=== PATIENT | female | born 1985 | race Caucasian/White ===

== ENCOUNTER 2017-08-01 05:20 | Day surgery (SDC) | payer SELFPAY ==
[2017-07-24 15:50] LABS: Hematocrit 42.1 % (37-47); Hemoglobin 13.9 g/dl (12.0-15.0); Mean Corpuscular Hgb 29.7 pg (27.0-32.0); Mean Platelet Vol. 12.5 fl (6.2-12.0); Platelet Count 303 K/mm3 (150-450); RBC Distribution Width CV 12.5 % (11.6-14.6); RBC Distribution Width SD 41.1 fl (35.1-43.9); Red Blood Count 4.68 M/mm3 (4.2-5.4); Scan Indicated on CBC? Y/N NO; White Blood Count 8.2 K/mm3 (4.4-11.0)
[2017-08-01] VITALS (14 sets, daily range): BP systolic 98–131; BP diastolic 63–89; PULSE 64–107; RESP 16–18; TEMP 36.4–37.1; O2SAT 89–100; BMI 31.5
[2017-08-01 05:49] LABS: Internal QC Validated? YES +Cl - CLEAR BKGD; Pregnancy, Urine Negative Negative
[2017-08-01] MEDS: Phenazopyridine 95 MG Tablet 190 MG PO (06:03)
--- NOTE | 2017-08-01 07:15 | HYST_PTH ---
PATIENT: SEBASTIAN TANNER LOC: [facility] [place] U#:[id number] AGE/SX: 32/F ROOM: RE08/01/[address]: Dr. Rosetta Blanton, MDDOB: 1985 BED: DIS: 08/02/2017 SPEC #: [id number] RECD: 08/01/17 10:23 STATUS: LISA LISSETT #: [id number] JODI: 08/01/17 07:[address]: Rosetta Blanton DEPT: SURGICAL PATHOLOGY RECD BY: Camilo Gan ENTERED: 08/01/17 12:10 SP TYPE: HYSTERECT OTHR DR: No Primary Care Phys Tissues: Uterus, NOS Procedures: Surgery Specimen Level V HEADER OPERATION: Hysterectomy, laparoscopic, total, salpingectomy, cysto PRE-OP DIAGNOSIS: Pelvic pain TISSUE SUBMITTED: Uterus and bilateral fallopian tubes MICROSCOPIC DIAGNOSIS Uterus and bilateral fallopian tubes, total hysterectomy and bilateral salpingectomy: Cervix ? mild chronic cystic cervicitis. Endometrium ? early secretory endometrium. Myometrium ? a small leiomyoma (0.4 cm in greatest dimension). Bilateral fallopian tubes - no pathologic diagnosis. SJ:julito 08/02/17 MICROSCOPIC DESCRIPTION Slides are reviewed. GROSS DESCRIPTION Received in fixative is one container labeled with the patient's name and designated uterus and bilateral fallopian tubes. The specimen consists of a hysterectomy specimen consisting of uterus with cervix and detached bilateral fallopian tubes. The uterus with cervix weighs 122 gm and measures 10 x 8 x 5 cm. The serosal surface is winter, glistening. The ectocervical mucosa is unremarkable. The external os is circular in contour. A few sutures are noted at the ectocervix. Two Filshie clips are noted at the right cornu which appears intact. The endocervical canal measures 4 cm in length and the endocervical mucosa is winter, glistening and unremarkable. The triangular endometrial cavity measures 4.5 cm in length and 2 cm in width. The endometrium is congested and hemorrhagic without any mass lesion and measures 0.1 cm in thickness. Sections of the uterine wall reveal one small nodular mass measuring 0.4 cm in greatest dimension. The uterine wall measures up to 2.5 cm in thickness. The fallopian tubes are not identified as right or left. One of the fallopian tubes measures 6 cm in length and 0.9 cm in diameter. The fimbrial end is identified. Sections reveal unremarkable cut surfaces. The second fallopian tube is present in two pieces and measures 8 cm in length and 0.9 cm in diameter. The fimbrial end is identified. Sections reveal unremarkable cut surfaces. Housetrailer Servicer sections are submitted in eight cassettes as follows: 1 - anterior cervix, 2 - posterior cervix, 3 & 4 - anterior uterine wall, 5 & 6 - posterior uterine wall (6 also contains the small nodular mass), 7 ? one fallopian tube, 8 ? second fallopian tube received in two pieces. / RADHA:julito 08/01/17 TC:1 CPT: 71035
[2017-08-01] MEDS: Bupivacaine Mpf 0.5% 30 ML VIAL (07:40)
--- NOTE | 2017-08-01 09:33 | PCM.OP.BLANK ---
Operative Report Date of Procedure: 08/01/17 Pre-Operative Diagnosis: Pelvic pain , suspect adenomyosis Post-Operative Diagnosis: same, Surgery/Procedure Performed:: TLH, Bilateral salpingectomy, Cysto Description of Surgical Findings: Uterus normal, tubes s/p previous tubal ligation with filshie clips. Left fishie clips not attached to tube, sitting near anterior culdesac - removed. Bilateral ovaries normal. 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 Norma Garcia anesthesiologists' assistant: Enriqueta Dumont MS3 Type of Anesthesia:: General Special Medications: 1% Lidocaine Specimen's removed: uterus, cervix, bilateral tubes Drains: tse - total output 720 Estimated Blood Loss (mL): 200cc Fluids replaced: 1600cc LR Description of Procedure: Patient take to OR and prepped and draped in usual sterile fashion in dorsal lithotomy position with her arms tucked in a neurologically safe and neutral position. The uterus sounded to 7.5 cm. The Vcare uterine manipulator was sutured into place at 3/9:00 position and tse were placed. Attention was turned to the abdomen. All port sites were infiltrated with 1% lidocaine before the incisions were made. The anterior abdominal wall was tented up with towel clamps and using a direct entry approach a 5 mm intraumbilical port was placed. Intraperitoneal placement was confirmed with the laparoscope and the pneumoperitoneum was created. The patient was placed in Trendelenburg and 5 mm right and left lower quadrant ports were placed under direct visualization. Air seal rapid insufflator was used. The bowel was swept away. Ovaries appeared normal. The mesosalpinx starting at fimbriated end were grasped, clamped, sealed and transected with the Ligasure. The round ligaments were divided. significant adhesions from bladder to anterior aspect of uterus- taken down diligently to ensure no cystotomy. The anterior peritoneum was dissected down to create the bladder flap with blunt dissection and the LigaSure. The uterine arteries were isolated, clamped, sealed and cut. There was minimal back bleeding from the uterus. Straight bites on uterine artieries performed to drop them off the cuff. The Vcare was used as guide to create colpotomy using monopolar tip of ligasure. once specimen was removed attention was turned to vaginal portion. there were small vessels on the cuff that were coagulated. attention turned to vaginal portion at this time- The specimen was handed off. more small oozing noted from cuff- posterior peritoneum was run with 2-0 vicryl and any oozing was sutured in figure of eight fashion for hemostasis. The cuff was closed with interrupted 0-vicryl figure of 8 sutures. Cystoscopy was performed bilateral ureters were visualized with good efflux. bladder was intact. tse replaced and sponge stick placed in vagina. The pneumoperitoneum was recreated and the cuff and pedicles were hemostatic. Regino was placed over cuff and pedicles. The skin incisions were closed with skin glue and 3-0 monocryl in the LLQ port site. The vaginal sweep was completed by me. i anticipate a normal post op course for this patient. Grafts/Implants Used: none
[2017-08-01] MEDS: Ketorolac 30 MG/ML Syringe IV ×3 (10:14→21:29)
[2017-08-01] MEDS: Lactated Ringers 1,000 ML 125 ML IV ×3 (10:18→21:29)
--- NOTE | 2017-08-01 10:35 | PCM.DC.AHY ---
Discharge Diet: No Restrictions Discharge Activity: Return to Normal Activity, May Not Drive - while taking narcotic pain medications., May Shower May resume sexual activity in: 6-8 weeks Lifting Restrictions: 20 Call your doctor if your incision/area has: Continuous Slow Oozing, Sudden Increased Bleeding, Increased Pain/ Swelling, Increased Redness, Foul Smelling Discharge Call your doctor if you observe: Fever of 101 or Higher, Inability to urinate, Inability to have a bowel movement, Using more than one pad per hour Allergies/Adverse Reactions: Allergies No Known Allergies Allergy (Verified 07/24/17 14:28) Medications to take at Discharge Multivitamins,Therapeutic [Multivitamin] 1 tablet PO DAILY 08/01/15 L.acidoph,Paracasei, B.lactis [Probiotic] 1 each PO DAILY 07/24/17 Primary Care Physician: Care Physician,No Primary [Primary Care Provider] - Please Follow Up With: Rosetta Blanton MD When: 2 weeks as scheduled with Dr. Cheung
[2017-08-01] MEDS: Acetaminophen 500 MG Tablet 1000 MG PO ×2 (14:20→21:28)
[2017-08-01] MEDS: HYDROmorphone 1 MG/ML Syringe IV (17:28)
[2017-08-01 17:47] LABS: Hematocrit 35.9 % (37-47); Hemoglobin 11.8 g/dl (12.0-15.0); Mean Corp Hgb Conc 32.9 g/gl (32-36); Mean Corpuscular Hgb 29.9 pg (27.0-32.0); Mean Corpuscular Volume 90.9 fL (81-99); Platelet Count 217 K/mm3 (150-450); RBC Distribution Width CV 12.3 % (11.6-14.6); RBC Distribution Width SD 40.6 fl (35.1-43.9); Red Blood Count 3.95 M/mm3 (4.2-5.4); White Blood Count 13.3 K/mm3 (4.4-11.0)
[2017-08-01 17:49] LABS: Scan Indicated on CBC? Y/N NO
[2017-08-01] MEDS: oxyCODONE 5 MG Tablet PO (20:25)
[2017-08-01] MEDS: Docusate Sodium 100 MG Capsule PO (21:28)
[2017-08-02] MEDS: oxyCODONE 5 MG Tablet PO (01:24)
[2017-08-02 01:31] VITALS: BP 100/66; PULSE 83; RESP 18; TEMP 36.9; O2SAT 95
[2017-08-02] MEDS: Ketorolac 30 MG/ML Syringe IV (05:13)
[2017-08-02] MEDS: Enoxaparin 40 MG/0.4 ML Syringe SC (05:14)
[2017-08-02] MEDS: 0.9% NaCl Peripheral Flush Adult/Peds IV (05:15)
[2017-08-02] MEDS: Acetaminophen 500 MG Tablet 1000 MG PO (05:15)
[2017-08-02 06:21] LABS: Absolute Lymphocyte Count 2.65 X10^3/ul (0.83-4.51); Absolute Neutrophil Count 6.6 X10^3/uL (2.0-7.7); Basophil# 0.01 X10^3/uL; Basophil% 0.1 % (0-1); Eosinophil# 0.15 X10^3/uL; Eosinophils% 1.4 % (0-5); Hematocrit 34.3 % (37-47); Lymphocyte # 2.65 X10^3/ul (4.0); Lymphocyte % 24.4 % (19-41); Mean Corp Hgb Conc 32.1 g/gl (32-36); Mean Corpuscular Volume 90.5 fL (81-99); Mean Platelet Vol. 11.4 fl (6.2-12.0); Monocyte# 1.47 X10^3/uL; Monocyte% 13.5 % (0-10); Neutrophil # 6.56 X10^3/uL (2.7-7.7); Neutrophil % 60.4 % (47-70); Platelet Count 224 K/mm3 (150-450); RBC Distribution Width CV 12.7 % (11.6-14.6); RBC Distribution Width SD 42.1 fl (35.1-43.9); Red Blood Count 3.79 M/mm3 (4.2-5.4); White Blood Count 10.9 K/mm3 (4.4-11.0)
[2017-08-02 06:33] LABS: POSITIVE COUNT NO; POSITIVE DIFFERENTIAL NO; POSITIVE MORPHOLOGY NO
[2017-08-02 07:29] VITALS: BP 98/64; PULSE 90; RESP 18; TEMP 36.7; O2SAT 96
[2017-08-02 07:36] VITALS: O2SAT 95
--- NOTE | 2017-08-02 08:07 | PN.OBGYN_ITS ---
Subjective: pt seen at bedside, doing well. pt reports good pain control- rates 3/10. denies Nausea or vomiting today- had one episode of emesis last night. pt reports no flatus yet. Denies CP, SOB, dizziness. Up ambulating and voiding w/o difficulty. - Physical Exam General: Alert, Oriented x3 Abdomen: Soft, Non-Distended, - - incision sites dry and intact Extremities: No Calf Tenderness Vital Signs Temp Pulse Resp BP Pulse Ox 98.1 F 90 18 98/64 95 08/02/17 07:29 08/02/17 07:29 08/02/17 07:29 08/02/17 07:29 08/02/17 07:36 Oxygen Flow Rate (L/min) 2 Oxygen Delivery Method Room Air Weight: 78.2 kg Body Mass Index (BMI) 31.5 Intake and Output for Last 24 Hours 07/31/17 08/01/17 08/02/17 23:59 23:59 23:59 Intake Total 3907 / 3907 1066 / 1066 Output Total 2170 / 2170 2575 / 2575 Balance 1737 / 1737 -1509 / -1509 Laboratory Tests Past 24 Hrs 08/01/17 08/02/17 17:20 06:06 WBC 13.3 H 10.9 RBC 3.95 L 3.79 L Hgb 11.8 L 11.0 L Hct 35.9 L 34.3 L MCV 90.9 90.5 MCH 29.9 29.0 MCHC 32.9 32.1 RDW 12.3 12.7 RDW Differential 40.6 42.1 Plt Count 217 224 MPV 12.0 11.4 Immature Gran % (Auto) 0.200 Neut % (Auto) 60.4 Lymph % (Auto) 24.4 [place] % (Auto) 13.5 H Eos % (Auto) 1.4 Baso % (Auto) 0.1 Absolute Neuts (auto) 6.6 Absolute Lymphs (auto) 2.65 Total Counted Not Reportable Medical Necessity - Tobacco Use Smoking Status: Never smoker Assessment/Plan POD#1, doing well routine care pain mgmt ambulation dc home- post op pain meds already given prior to surgery
[2017-08-02] MEDS: Docusate Sodium 100 MG Capsule PO (08:40)
== END 2017-08-02 09:36 | disposition home or self-care (01) ==
LOC: SDC 05:25 → AC 05:25 → MS2 08:20
PROVIDERS: Anesthesiology; Visit Provider Obstetrics & Gynecology
PROC: 0UT94ZZ Resection of Uterus, Percutaneous Endoscopic Approach (ICD-10-PCS; CPT 58571; principal; 2017-08-01 06:55)
DX: N72 Inflammatory disease of cervix uteri (principal); D25.9 Leiomyoma of uterus, unspecified; G89.18 Other acute postprocedural pain; Z98.51 Tubal ligation status
CPT/HCPCS: 00840; 58571; 36415; 81025; 85025; 85027; 86850; 86900; 88307; J7120; A4216; J2405

== ENCOUNTER 2018-10-05 21:26 | Emergency (ER) | payer OTHER, SELFPAY ==
[2018-10-05 21:27] VITALS: BP 120/71; PULSE 110; RESP 18; TEMP 36.7; O2SAT 97; BMI 31.6
--- NOTE | 2018-10-05 22:48 | CT_ITS ---
STUDY: CT ABDOMEN AND PELVIS WITHOUT CONTRAST REASON FOR EXAM: Female, 33 years old. Left flank pain RADIATION DOSAGE (If Supplied By Facility): CTDIvol = ( 8.76 ) mGy, DLP = ( 433.15 ) mGycm TECHNIQUE: Transaxial images were obtained from the dome of the diaphragm to the symphysis pubis without oral contrast, and without intravenous contrast. Sagittal and coronal images were reconstructed. Individualized dose optimization techniques were used for this CT. COMPARISON: None. FINDINGS: The visualized lung bases are unremarkable. The visualized portions of the heart are within normal limits. Normal liver. Normal gallbladder and extrahepatic biliary system. Normal spleen. Normal pancreas. Normal bilateral adrenal glands. Normal right kidney. Normal left kidney. Normal visualized stomach. Normal small intestine. Normal colon. There is non-visualization of the appendix. Normal abdominal aorta. Normal inferior vena cava. Normal retroperitoneum. Normal urinary bladder. Normal-appearing uterus. No suspicious cystic mass or free fluid noted Normal abdominal wall. Normal osseous structures. CT/Abdomen/Pelvis without Cont IMPRESSION: No suspicious solid organ abnormality, specifically, no obstructive uropathy noted. Appendix not visualized No suspicious cystic mass or free fluid in the pelvis No free intraperitoneal fluid, air, or suspicious adenopathy Electronically Signed: Khang Greene MD at 23:38 EDT , Service support ,
[2018-10-05] MEDS: Morphine 4 MG/ML Syringe IV (22:59)
[2018-10-05] MEDS: Ondansetron 4 MG/2 ML Vial IV (22:59)
[2018-10-05] MEDS: Ketorolac 30 MG/ML Syringe IV (23:00)
[2018-10-05] MEDS: 0.9% Normal Saline 1,000 ML 999 ML IV (23:00)
[2018-10-05 23:09] LABS: Absolute Lymphocyte Count 1.84 X10^3/ul (0.83-4.51); Absolute Neutrophil Count 12.9 X10^3/uL (2.0-7.7); Basophil# 0.02 X10^3/uL; Basophil% 0.1 % (0-1); Eosinophil# 0.17 X10^3/uL; Hematocrit 43.2 % (37-47); Hemoglobin 14.6 g/dl (12.0-15.0); Lymphocyte # 1.84 X10^3/ul (4.0); Mean Corp Hgb Conc 33.8 g/gl (32-36); Mean Corpuscular Volume 88.7 fL (81-99); Monocyte# 1.72 X10^3/uL; Monocyte% 10.3 % (0-10); Neutrophil # 12.92 X10^3/uL (2.7-7.7); Neutrophil % 77.3 % (47-70); Platelet Count 192 K/mm3 (150-450); RBC Distribution Width CV 12.6 % (11.6-14.6); RBC Distribution Width SD 40.3 fl (35.1-43.9); Red Blood Count 4.87 M/mm3 (4.2-5.4); White Blood Count 16.7 K/mm3 (4.4-11.0)
[2018-10-05 23:10] LABS: Differential Indicated SCAN CRITERIA MET; POSITIVE COUNT NO; POSITIVE DIFFERENTIAL YES; POSITIVE MORPHOLOGY NO
[2018-10-05 23:26] LABS: Bacteria 0 SEEN /hpf (None Seen); Mucous, Urine 0 SEEN /hpf (<or=2+)
[2018-10-05 23:29] LABS: Color, Urine Yellow (Yellow); Differential Comment SCANNED; Glucose, Dipstick Normal (Normal); Ketone-Dipstick 5 mg/dl (Negative); Leukocyte Esterase-Dipstick 500 /ul (Negative); Nitrite-Dipstick Positive (Negative); Occult Blood-Urine 250 /ul (Negative); Protein-Dipstick 100 mg/dl (Negative); Urine Bilirubin Dipstick Negative (Negative); Urine Clarity Cloudy (Clear); Urine Urobilinogen Normal (Normal)
[2018-10-05 23:38] LABS: Red Blood Cells-Urine 25-50 SEEN /hpf (0-5); Squamous Epithelial Cells - UA 0-5 SEEN /hpf (5-10); White Blood Cells >100 SEEN /hpf (0-5)
[2018-10-05 23:49] VITALS: BP 111/75; PULSE 97; RESP 16; TEMP 36.7; O2SAT 94
[2018-10-05 23:54] LABS: Anion Gap 8 (5-15); BUN 7 mg/dL (7-18); BUN/Creat Ratio 8.7 RATIO (10-20); Calcium,Total 8.1 mg/dL (8.5-10.1); Chloride 107 mmol/L (98-107); EST Glomerular Filtration Rate 86 mL/min (>60); Est Glom Filt Rate - Afr Amer 104 mL/min (>60); Estimated Creatinine Clearance 77.63 ml/min; Glucose 127 mg/dL (74-106); Potassium 3.6 mmol/L (3.5-5.1); Sodium Level 140 mmol/L (136-145)
[2018-10-06] MEDS: Ceftriaxone 1 GM/50 ML BAG IV (00:14)
--- NOTE | 2018-10-06 00:42 | ED.VIS.GI ---
History of Present Illness Chief Complaint: Abd Pain Informant: Patient - Abdominal Pain/Flank Pain Onset: Yesterday Context: Gradual Onset Timing: Continuous Quality: Aching Location: Left Flank - and distal LLQ Current Severity: Severe Maximum Severity: Severe Worsened by: Nothing Relieved by: Nothing - Nausea/Vomiting/Emesis GI Symptom: Nausea, Vomiting Onset: Yesterday Quality: Nonbilious. Negative for: Blood streaks, Coffee ground, Hematemesis Severity: Moderate - only few episodes of vtg - Diarrhea/Melena/Hematochezia GI Symptom: Negative for: Diarrhea, Melena, Hematochezia Associated Symptoms: Dysuria, Frequency, Hematuria - very slight amt/appearance; no clots/retention LMP: s/p partial hyst Narrative: Urinary symptoms started yesterday, but significant pain since this morning. Never had this before. No history of kidney stones. Prior similar symptoms: No Recent Illness/Hospitalization: No Past Medical History - Allergies and Home Meds Allergies/Adverse Reactions: Allergies No Known Allergies Allergy (Verified 10/05/18 21:27) Primary Care Physician: Care Physician,No Primary [Primary Care Provider] - Surgical History: hysterectomy, - - c-sections Lives: With Family Smoking Status: Never smoker Review of Systems General: Reports: Malaise. Denies: Chills, Fever, Sweats Eyes: Denies: Visual changes - bilaterally, Diplopia ENT: Denies: Rhinorrhea, Sore throat Cardiovascular: Denies: Chest pain, Palpitations Respiratory: Denies: Dyspnea, Cough, Dyspnea on exertion Gastrointestinal: Reports: Abdominal pain, Nausea, Vomiting. Denies: Diarrhea, Melena, Hematochezia Genitourinary: Reports: Dysuria, Hematuria, Frequency Musculoskeletal: Reports: Back pain. Denies: Neck pain, Swelling, Extremity Pain Skin: Denies: Rash, Abscess, Wounds Neurological: Denies: Headache, Weakness, Numbness Physical Exam Vital Signs/Narrative: Vital Signs Temp Pulse Resp BP Pulse Ox 10/05/18 23:49 98.0 F 97 16 111/75 94 10/05/18 21:27 98.0 F 110 H 18 120/71 97 Inital Vital Signs reviewed: Yes General: Well nourished, Well developed, No Acute Distress Head: Normocephalic, Atraumatic Eyes: Perrl, EOMI ENT: Moist mucous membranes, No rhinorrhea Neck: Supple, Nontender Cardiovascular: Regular rate, Regular rhythm, No murmurs Respiratory: No distress, CTA bilaterally, Chest nontender Abdomen: Soft, Nondistended, Normal bowel sounds, Tender - suprapubic and LLQ mild; otherwise, NT. Negative for: Guarding, Rebound tenderness, Pulsatile mass Back: Normal Inspection - no rash, CVA tenderness - left Extremities: Nontender, No edema Skin: Normal color, No rash Neurological: Alert, Oriented x3, Cranial nerves II-XII grossly intact, Normal Strength, Normal Sensation Psychological: Normal affect, Normal Mood Diagnostic/Tx/Re-eval Impressions Abdomen/Pelvis CT 10/05/18 22:48 IMPRESSION: No suspicious solid organ abnormality, specifically, no obstructive uropathy noted. Appendix not visualized No suspicious cystic mass or free fluid in the pelvis No free intraperitoneal fluid, air, or suspicious adenopathy Electronically Signed: Khang Greene MD at 23:38 EDT , Service support , 10/05/18 22:48 Abdomen/Pelvis without Cont [CT] Stat Laboratory Results 10/05/18 10/05/18 10/05/18 21:45 21:45 21:45 WBC 16.7 H RBC 4.87 Hgb 14.6 Hct 43.2 MCV 88.7 MCH 30.0 MCHC 33.8 RDW 12.6 RDW Differential 40.3 Plt Count 192 MPV 13.0 H Immature Gran % (Auto) 0.300 Neut % (Auto) 77.3 H Lymph % (Auto) 11.0 L [place] % (Auto) 10.3 H Eos % (Auto) 1.0 Baso % (Auto) 0.1 Absolute Neuts (auto) 12.9 H Absolute Lymphs (auto) 1.84 Total Counted Not Reportable Differential Comment SCANNED Sodium Cancelled Potassium Cancelled Chloride Cancelled Carbon Dioxide Cancelled Anion Gap Cancelled BUN Cancelled Creatinine Cancelled Estim Creat Clear Calc Cancelled Est GFR (MDRD) Af Amer Cancelled Est GFR (MDRD) Non-Af Cancelled BUN/Creatinine Ratio Cancelled Glucose Cancelled Calcium Cancelled Urine Color Yellow Urine Clarity Cloudy Urine pH 6.0 Ur Specific [place] 1.020 Urine Protein 100 H Urine Glucose (UA) Normal Urine Ketones 5 H Urine Occult Blood 250 H Urine Nitrite Positive H Urine Bilirubin Negative Urine Urobilinogen Normal Ur Leukocyte Esterase 500 H Urine RBC 25-50 SEEN Urine WBC >100 SEEN Ur Squamous Epith Cells 0-5 SEEN Urine Bacteria 0 SEEN Urine Mucus 0 SEEN 10/05/18 23:25 WBC RBC Hgb Hct MCV MCH MCHC RDW RDW Differential Plt Count MPV Immature Gran % (Auto) Neut % (Auto) Lymph % (Auto) [place] % (Auto) Eos % (Auto) Baso % (Auto) Absolute Neuts (auto) Absolute Lymphs (auto) Total Counted Differential Comment Sodium 140 Potassium 3.6 Chloride 107 Carbon Dioxide 25.0 Anion Gap 8 BUN 7 Creatinine 0.80 Estim Creat Clear Calc 77.63 Est GFR (MDRD) Af Amer 104 Est GFR (MDRD) Non-Af 86 BUN/Creatinine Ratio 8.7 L Glucose 127 H Calcium 8.1 L Urine Color Urine Clarity Urine pH Ur Specific [place] Urine Protein Urine Glucose (UA) Urine Ketones Urine Occult Blood Urine Nitrite Urine Bilirubin Urine Urobilinogen Ur Leukocyte Esterase Urine RBC Urine WBC Ur Squamous Epith Cells Urine Bacteria Urine Mucus - Medical Decision Making After IV fluids, morphine, Zofran, patient is feeling and appearing much better. CT shows no stone or signs of diverticulitis. Given the urinary symptoms, although radiographic abnormality of the kidney was not seen, this is likely pyelonephritis. She was given a dose of IV Rocephin, given a p.o. fluid challenge which she passed easily, she appears much better and her heart rate is now less than 100. She is clinically well and not septic. She is comfortable with outpatient treatment. She is discharged on Bactrim, [place], Zofran, advised follow-up. Culture was sent. ED Disposition - Plan for ED Patient: Disposition: Home or Assisted Living Diagnosis: Pyelonephritis Instructions: PYELONEPHRITIS, Female (Adult) Prescriptions: Sulfamethoxazole/Trimethoprim [Bactrim Ds Tablet] 1 ea PO BID #28 tab Prescription Printed Hydrocodone Bitart/Apap 5-325 [[place] 5MG-325MG] 1 tab PO Q4H PRN PRN 2 Days #10 tab PRN Reason: Pain Prescription Printed Ondansetron [Zofran] 8 mg PO Q8H PRN #12 tab PRN Reason: Nausea/Vomiting Prescription Printed Referrals: Doctor,Your [STAFF PHYSICIAN] - 3-5 Days if not improving
[2018-10-06] MEDS: Smz/Tmp Ds Tablet 1 TABLET PO (01:04)
[2018-10-06 01:05] VITALS: BP 91/64; PULSE 75; RESP 18; O2SAT 97
== END 2018-10-06 01:05 | disposition home or self-care (01) ==
PROVIDERS: Emergency Provider Emergency Medicine
DX: N12 Tubulo-interstitial nephritis, not specified as acute or chronic (principal)
CPT/HCPCS: 74176; 80048; 81001; 85025; 87086; 87088; 87186; 96361; 96365; 96375; 99285; J7030; J7050; A4216; J2405

== ENCOUNTER → 2018-10-13 12:46 | Outpatient (CLI) | payer OTHER, SELFPAY ==
[2018-10-05 21:27] VITALS: BMI 31.6
== END ==
PROVIDERS: Referring Provider Urology; Visit Provider Urology
DX: R30.0 Dysuria (principal)
CPT/HCPCS: 87086

== ENCOUNTER 2020-04-01 23:18 | Emergency (ER) | payer OTHER, SELFPAY ==
[2020-04-01 23:19] VITALS: BP 134/96; PULSE 87; RESP 18; TEMP 36.7; O2SAT 96; BMI 32.0
--- NOTE | 2020-04-01 23:32 | ED.DCSUM_ITS ---
History of Present Illness Chief Complaint: Abd Pain Informant: Patient Narrative: Patient presents with dull achy pain and burning in the epigastric region. Is been going on since this afternoon. She had it last week for short period of time and it resolved on its own soon after it started. History of hysterectomy and in the past. Positive nausea without vomiting. Normal bowel movements. No urinary symptoms. Current severity is mild to moderate. She tried Tums at home with minimal relief. Past Medical History - Allergies and Home Meds Allergies/Adverse Reactions: Allergies No Known Allergies Allergy (Verified 04/01/20 23:21) Primary Care Physician: Care Physician,No Primary [Primary Care Provider] - Prior records reviewed: Yes Past Medical History: - - Reviewed Surgical History: hysterectomy, - - c-sections Smoking Status: Never smoker Alcohol: None Drugs: None Review of Systems General: Denies: Chills, Fever, Sweats Eyes: Denies: Visual changes - bilaterally, Diplopia ENT: Denies: Rhinorrhea, Sore throat Cardiovascular: Denies: Chest pain, Palpitations Respiratory: Denies: Dyspnea, Cough, Dyspnea on exertion Gastrointestinal: Reports: Abdominal pain, Nausea. Denies: Vomiting, Diarrhea, Melena, Hematochezia Genitourinary: Denies: Dysuria, Hematuria, Frequency Musculoskeletal: Denies: Back pain, Extremity Pain Skin: Denies: Rash, Wounds Neurological: Denies: Headache, Weakness, Numbness Physical Exam Vital Signs/Narrative: Vital Signs Temp Pulse Resp BP Pulse Ox 04/01/20 23:19 98.0 F 87 18 134/96 H 96 General: Well nourished, Well developed, No Acute Distress Head: Normocephalic, Atraumatic Eyes: Perrl, EOMI ENT: Moist mucous membranes, No rhinorrhea Neck: Supple, Nontender Cardiovascular: Regular rate, Regular rhythm, No murmurs Respiratory: No distress, CTA bilaterally, Chest nontender Abdomen: Soft, Nondistended, Normal bowel sounds, Tender - Isauro to palpation epigastric without guarding or rebound. No masses. Negative for: Guarding, Rebound tenderness, Hypoactive bowel sounds Back: Nontender, Normal Inspection Extremities: Nontender, No edema Skin: Normal color, No rash Neurological: Alert, Oriented x3, Cranial nerves II-XII grossly intact, Normal Strength, Normal Sensation Psychological: Normal affect, Normal Mood Diagnostic/Tx/Re-eval - Medical Decision Making Patient given IV fluids Zofran morphine. Lab work obtained. Lab work unremarkable including CBC BMP liver lipase urine. At this time I feel the patient can be discharged. On reevaluation she feels much better. Abdominal pain is completely resolved. This may be gastritis related pain or stomach ulcer. She will sampler pickup Pepcid and wants to do this [id number] and follow-up with her family doctor. I have a low suspicion for gallbladder pain. Her discomfort is in the epigastric region. I do not think she needs acute imaging. We will follow-up as an outpatient and return if she worsens ED Disposition - Plan for ED Patient: Disposition: Home or Assisted Living Diagnosis: Epigastric abdominal pain Instructions: ED Epigastric Pain (Uncertain Cause) Referrals: Care Physician,No Primary [Primary Care Provider] - Additional Instructions: Follow with your family doctor. Use Pepcid [id number] antiacid medication
[2020-04-02 00:03] LABS: Absolute Lymphocyte Count 2.98 X10^3/uL (0.83-4.51); Absolute Neutrophil Count 5.3 X10^3/uL (2.0-7.7); Basophil# 0.05 X10^3/uL; Basophil% 0.5 % (0-1); Eosinophil# 0.32 X10^3/uL; Eosinophils% 3.3 % (0-5); Hematocrit 42.5 % (37-47); Lymphocyte # 2.98 X10^3/ul (4.0); Mean Corp Hgb Conc 32.9 g/dL (32-36); Mean Corpuscular Hgb 29.2 pg (27.0-32.0); Mean Corpuscular Volume 88.5 fL (81-99); Mean Platelet Vol. 11.5 fl (6.2-12.0); Monocyte# 0.99 X10^3/uL; Monocyte% 10.3 % (0-10); NRBC Flagged by Analyzer 0 % (0-5); Neutrophil # 5.25 X10^3/uL (2.7-7.7); Neutrophil % 54.6 % (47-70); POSITIVE MORPHOLOGY YES; Platelet Count 200 K/mm3 (150-450); RBC Distribution Width CV 12.1 % (11.6-14.6); RBC Distribution Width SD 39.2 fl (35.1-43.9); White Blood Count 9.6 K/mm3 (4.4-11.0)
[2020-04-02] MEDS: Morphine 4 MG/ML Syringe IV (00:03)
[2020-04-02] MEDS: 0.9% Normal Saline 1,000 ML 1000 ML IV (00:03)
[2020-04-02] MEDS: Ondansetron 4 MG/2 ML Vial IV (00:04)
[2020-04-02 00:06] LABS: Differential Indicated SCAN CRITERIA MET
[2020-04-02 00:17] LABS: AST(SGOT) 15 U/L (15-37); Alanine Aminotransfer ALT/SGPT 27 U/L (13-56); Albumin, Serum 4.3 g/dL (3.2-5.0); Alkaline Phosphatase 65 U/L (45-117); Anion Gap 7 (5-15); BUN 7 mg/dL (7-18); BUN/Creat Ratio 8.4 RATIO (10-20); Bilirubin, Direct 0.22 mg/dL (0.00-0.30); Calcium,Total 9.2 mg/dL (8.5-10.1); Chloride 106 mmol/L (98-107); Creatinine, Serum 0.83 mg/dL (0.55-1.02); EST Glomerular Filtration Rate 82 mL/min (>60); Est Glom Filt Rate - Afr Amer 99 mL/min (>60); Globulin 3.6 g/dL (2.2-4.2); Glucose 107 mg/dL (74-106); Lipase 76 U/L (73-393); Potassium 3.5 mmol/L (3.5-5.1); Protein, Total 7.9 g/dL (6.4-8.2); Sodium Level 140 mmol/L (136-145)
[2020-04-02 00:25] LABS: Bacteria 0 SEEN /hpf (None Seen); Mucous, Urine 0 SEEN /hpf (<or=2+); Red Blood Cells-Urine 0 SEEN /hpf (0-5); Squamous Epithelial Cells - UA 0 SEEN /hpf (5-10); White Blood Cells 0 SEEN /hpf (0-5)
[2020-04-02 00:26] LABS: Color, Urine Straw (Yellow); Glucose, Dipstick Normal (Normal); Ketone-Dipstick Negative (Negative); Leukocyte Esterase-Dipstick Negative /ul (Negative); Nitrite-Dipstick Negative (Negative); Occult Blood-Urine Negative /ul (Negative); Protein-Dipstick Negative (Negative); Urine Bilirubin Dipstick Negative (Negative); Urine Clarity Clear (Clear); Urine Urobilinogen Normal (Normal)
[2020-04-02 00:38] LABS: Differential Comment SCANNED
[2020-04-02 00:39] LABS: Platelet Estimate ADEQUATE (ADEQ)
[2020-04-02 00:40] LABS: Platelet Morphology CLUMPED
[2020-04-02 01:40] VITALS: BP 132/60; PULSE 78; RESP 18; O2SAT 96
== END 2020-04-02 01:41 | disposition home or self-care (01) ==
PROVIDERS: Emergency Provider Emergency Medicine
DX: R10.13 Epigastric pain (principal); R11.0 Nausea; Z90.710 Acquired absence of both cervix and uterus
CPT/HCPCS: 80048; 80076; 81001; 83690; 85025; 96361; 96374; 96375; 99283; J7030; A4216; J2405

== ENCOUNTER 2020-09-26 14:05 | Emergency (ER) | payer OTHER, SELFPAY ==
[2020-09-26 14:06] VITALS: BP 115/73; PULSE 124; RESP 16; TEMP 37.1; O2SAT 96; BMI 31.1
--- NOTE | 2020-09-26 15:23 | EKG12_ITS ---
Test Reason : Blood Pressure : / mmHG Vent. Rate : 107 BPM Atrial Rate : 107 BPM P-R Int : 136 ms QRS Dur : 088 ms QT Int : 350 ms P-R-T Axes : 053 057 009 degrees QTc Int : 467 ms Sinus tachycardia Otherwise normal ECG Confirmed by ANDRIA MRAROQUIN, BROOKS ([id number]), editor in chief newspaper SANDRA SUAREZ ([id number]) on 09/29/2020 7:50:08 AM Referred By: TYRONE Confirmed By:BROOKS AYERS MD
[2020-09-26 15:49] LABS: Absolute Neutrophil Count 10.2 X10^3/uL (2.0-7.7); Basophil# 0.02 X10^3/uL; Basophil% 0.2 % (0-1); Eosinophil# 0.02 X10^3/uL; Eosinophils% 0.2 % (0-5); Hematocrit 46.1 % (37-47); Hemoglobin 15.1 g/dL (12.0-15.0); Lymphocyte % 5.1 % (19-41); Mean Corp Hgb Conc 32.8 g/dL (32-36); Mean Corpuscular Hgb 29.3 pg (27.0-32.0); Mean Corpuscular Volume 89.5 fL (81-99); Mean Platelet Vol. 12.1 fl (6.2-12.0); Monocyte# 0.88 X10^3/uL; Monocyte% 7.5 % (0-10); NRBC Flagged by Analyzer 0 % (0-5); Neutrophil # 10.19 X10^3/uL (2.7-7.7); Neutrophil % 86.7 % (47-70); POSITIVE DIFFERENTIAL YES; POSITIVE MORPHOLOGY YES; Platelet Count 151 K/mm3 (150-450); RBC Distribution Width SD 39.4 fl (35.1-43.9); Red Blood Count 5.15 M/mm3 (4.2-5.4); White Blood Count 11.8 K/mm3 (4.4-11.0)
[2020-09-26] MEDS: 0.9% Normal Saline 1,000 ML 1000 ML IV (15:53)
[2020-09-26 15:56] VITALS: O2SAT 96
[2020-09-26 16:01] LABS: Differential Indicated SCAN CRITERIA MET
[2020-09-26 16:03] VITALS: BP 113/80; PULSE 105; RESP 19; TEMP 37.1; O2SAT 99
[2020-09-26 16:05] LABS: Bacteria 0 SEEN /hpf (None Seen); Mucous, Urine 0 SEEN /hpf (<or=2+); Red Blood Cells-Urine 0 SEEN /hpf (0-5); White Blood Cells 0 SEEN /hpf (0-5)
--- NOTE | 2020-09-26 16:05 | RAD_ITS ---
INDICATION: tachycardia EXAMINATION/TECHNIQUE: X-RAY - XR Chest 1 View COMPARISON: 01/12/2015. FINDINGS: The lungs are clear. The cardiomediastinal silhouette is unremarkable. No pleural effusion or pneumothorax. No acute osseous abnormalities. RAD/Chest 1 View (Portable) IMPRESSION: No acute radiographic abnormalities. Electronically Signed: Taran Bustillo MD at 16:27 EDT Tel , Service support ,
[2020-09-26 16:10] LABS: Anion Gap 7 (5-15); BUN 7 mg/dL (7-18); BUN/Creat Ratio 8.6 RATIO (10-20); Calcium,Total 8.8 mg/dL (8.5-10.1); Chloride 102 mmol/L (98-107); Creatinine, Serum 0.81 mg/dL (0.55-1.02); EST Glomerular Filtration Rate 84 mL/min (>60); Est Glom Filt Rate - Afr Amer 102 mL/min (>60); Estimated Creatinine Clearance 75.21 ml/min; Glucose 115 mg/dL (74-106); Potassium 3.7 mmol/L (3.5-5.1); Sodium Level 136 mmol/L (136-145); Troponin-I HS < 3.0 pg/mL (3.0-53.7)
[2020-09-26 16:15] LABS: Color, Urine Yellow (Yellow); Glucose, Dipstick Normal (Normal); Ketone-Dipstick Negative (Negative); Leukocyte Esterase-Dipstick Negative /ul (Negative); Nitrite-Dipstick Negative (Negative); Occult Blood-Urine Negative /ul (Negative); Protein-Dipstick Negative (Negative); Urine Bilirubin Dipstick Negative (Negative); Urine Clarity Clear (Clear); Urine Urobilinogen Normal (Normal)
[2020-09-26 16:35] LABS: D-Dimer Quantitative (DVT/PE) 0.59 FEU/ug/m (0.27-0.49)
[2020-09-26 16:37] LABS: Squamous Epithelial Cells - UA 0-5 SEEN /hpf (5-10)
[2020-09-26 16:39] VITALS: BP 110/79; BP 111/79; BP 113/83; PULSE 101; PULSE 105; PULSE 122
[2020-09-26 16:39] LABS: Platelet Estimate ADEQUATE (ADEQ)
[2020-09-26 16:40] LABS: Anisocytosis 1+; Macrocytosis RARE; Red Cell Morphology N CHROM NORMAL (NORM C&C)
--- NOTE | 2020-09-26 16:41 | CT_ITS ---
STUDY: CTA CHEST REASON FOR EXAM: Female, 35 years old. chest pain RADIATION DOSAGE (If Supplied By Facility): CTDIvol = ( 11.44 ) mGy, DLP = ( 343.02 ) mGycm TECHNIQUE: The examination was performed with the intravenous administration of IV 100mL Isovue-370. Post-processing of the angiographic images was performed, with multiplanar reformation and 3D reconstruction. Individualized dose optimization techniques were used for this CT. COMPARISON: CT of the chest dated February 16, 2012 FINDINGS: No consolidation or pleural effusion or pulmonary edema is seen. Normal enhancement of the main pulmonary artery and right and left pulmonary arteries. Normal enhancement of the bilateral peripheral pulmonary arteries. There is no demonstrated pulmonary embolism. Normal thoracic aorta and visualized great vessels. There is no demonstrated aortic dissection. Normal heart and pericardium. Normal mediastinum. Normal hilar regions. Normal visualized trachea and bronchi. The lungs are well expanded. Normal pulmonary parenchyma. Normal pleura. Normal chest wall structures. Normal osseous structures. Normal visualized upper abdomen. CT/CTA Chest W/WO Contrast IMPRESSION: 1. No demonstrated pulmonary embolism or arterial dissection. Electronically Signed: Zheng Pitts MD at 17:40 EDT , Service support ,
[2020-09-26 17:40] VITALS: BP 111/86; PULSE 102; RESP 18; O2SAT 99
--- NOTE | 2020-09-26 18:08 | EX.ED.DYSGE1 ---
HPI History of Present Illness Chief Complaint: Shortness of Breath Detail of Chief Complaint: Shortness of breath and generalized weakness for 3 days Informant: patient Narrative Narrative: Patient presents to the emergency department with complaint of an episode 3 days ago of tachycardia that lasted about 5 minutes. Patient states that her heart was racing and pounding and afterwards is felt drained. Patient states this morning her blood pressure was low running 82/52. Patient states that 2 months ago she had an episode of tachycardia that lasted about 10 to 15 minutes and it was elevated to 220 bpm. Patient felt like she was going to pass out but did not actually have a syncopal episode. Patient denies recent illness otherwise. She has no medical history otherwise. Prior similar symptoms: Yes PFSH PFSH Allergy/AdvReac Type Severity Reaction Status Date / Time No Known Allergies Allergy Verified 04/01/20 23:21 Social History Smoking Status: Never smoker ROS ROS ED Constitutional Constitutional ED: Reports systems reviewed and no addt'l complaints, except as documented; Denies body ache(s), change in weight or chills Eyes Eyes: Denies acute decrease in peripheral vision, change in vision, double vision or loss of vision ENT ENT ED: Reports none; Denies ear pain, lip swelling, loss taste/smell, neck pain, otalgia or sore throat Cardiovascular Cardiovascular: Reports none, palpitations and racing heartbeat; Denies abdominal pain, chest pain with activity, leg edema, lightheadedness, rapid heart rate or syncope Respiratory/Chest Respiratory/Chest: Reports none and dyspnea; Denies change in mental status, dry cough, hemoptysis, shortness of breath at rest or shortness of breath with exertion Gastrointestinal Gastrointestinal: Reports none; Denies abdominal pain, change in stool character, diarrhea, hematemesis, hematochezia, melena, rectal bleeding or vomiting Genitourinary Genitourinary ED: Reports none; Denies abdominal discomfort, anuria, dysuria, genital pain or polyuria Musculoskeletal Musculoskeletal: Reports none; Denies arthralgias, back pain, difficulty walking, extremity pain, muscle weakness or myalgias Integumentary Reports none; Denies abscess or rash Neurologic Neurologic: Reports none; Denies abnormal gait, confusion, focal weakness, frequent falls, headache(s), loss of vision, numbness, paresthesias, radicular pain, vertigo or weakness Psychiatric Psychiatric: Reports systems reviewed and no addt'l complaints, except as documented and none; Denies behavioral changes, confusion, difficulty concentrating, hallucinations, suicidal ideation, tactile hallucinations or visual hallucinations Endocrine Endocrinology: Denies none, cold intolerance, excessive sweating, fatigue or heat intolerance Hematologic/Lymphatic Hematologic/Lymphatic: Reports none; Denies anemia, easy bleeding or easy bruising Allergic/Immunologic Allergic/Immunologic ED: Denies as per HPI, none, lip swelling, mouth swelling, throat swelling, tongue swelling or hives EXAM Physical Exam Const Vital Signs: 09/26/20 14:06 09/26/20 15:56 09/26/20 16:03 Temperature 98.8 F 98.7 F Temperature Source Temporal Oral Pulse Rate 124 H 105 H Pulse Rate [Lying] Pulse Rate [Sitting] Pulse Rate [Standing] Respiratory Rate 16 19 H Respiratory Effort Short of Breath Respiratory Depth Normal Respiratory Pattern Normal Blood Pressure 115/73 113/80 Blood Pressure [Lying] Blood Pressure [Sitting] Blood Pressure [Standing] Blood Pressure Mean 87 91 Blood Pressure Mean [Lying] Blood Pressure Mean [Sitting] Blood Pressure Mean [Standing] Pulse Ox 96 99 Oxygen Delivery Method Room Air Room Air 09/26/20 16:39 09/26/20 17:40 Temperature Temperature Source Pulse Rate 102 H Pulse Rate [Lying] 101 H Pulse Rate [Sitting] 105 H Pulse Rate [Standing] 122 H Respiratory Rate 18 Respiratory Effort Respiratory Depth Respiratory Pattern Blood Pressure 111/86 H Blood Pressure [Lying] 110/79 Blood Pressure [Sitting] 113/83 H Blood Pressure [Standing] 111/79 Blood Pressure Mean 94 Blood Pressure Mean [Lying] 89 Blood Pressure Mean [Sitting] 93 Blood Pressure Mean [Standing] 89 Pulse Ox 99 Oxygen Delivery Method Room Air Positive well nourished and well developed General Appearance ED: well developed and NAD HEENT Reports TM's clear and moist mucous membranes normocephalic and atraumatic; Negative for trauma or tenderness Tympanic Membrane ED: Yes TM's clear Eyes PERRL and EOMs intact bilaterally General Eye ED: Negative for pale conjunctiva or scleral icterus Neck no lymphadenopathy, supple and no JVD General: Negative for tenderness Chest Wall inspection of chest normal and palpation of chest normal Chest: Negative for tenderness Resp normal respiratory effort and clear to auscultation bilaterally Effort and Inspection: Negative for respiratory distress or pain with movement Auscultation: Negative for rhonchi, wheezes or diminished lung sounds Cardio regular rhythm, S1 normal heart sound, S2 normal heart sound and no murmurs Rate: tachycardic Peripheral Pulses: pulses 2+ throughout GI normal to inspection, nondistended, normoactive bowel sounds, soft to palpation, non-tender, non-distended and no masses Back/Spine no CVA tenderness and no thoracic nor lumbar tenderness Extremity normal to inspection General Extremety ED: Negative for edema General Extremity: Negative for edema Neuro oriented x3, CN's II-XII intact bilaterally, no sensory deficits noted and gait normal Sensorium / Orientation: awake, alert, oriented to person, oriented to place and oriented to time Motor Exam: strength 5/5 throughout and strength abnormal Psych mental status grossly normal Skin no rashes or lesions noted and no wounds MDM MDM MDM Narrative Medical decision making narrative: Etiology of patient's symptoms unclear. Given the history of a heart rate of 220 suspect the possibility of an SVT. Recommended placing Holter monitor and follow-up with cardiology. Patient in agreement. I did order a TSH which will be pending. Lab Data Attestation: I reviewed the patient's lab results. Labs: Laboratory Results - last 24 hr 09/26/20 09/26/20 09/26/20 15:37 15:37 15:37 WBC 11.8 H RBC 5.15 Hgb 15.1 H Hct 46.1 MCV 89.5 MCH 29.3 MCHC 32.8 RDW Std Deviation 39.4 RDW Coeff of Maurisio 12.0 Plt Count 151 MPV 12.1 H Immature Gran % (Auto) 0.300 Neut % (Auto) 86.7 H Lymph % (Auto) 5.1 L Jewell % (Auto) 7.5 Eos % (Auto) 0.2 Baso % (Auto) 0.2 Absolute Neuts (auto) 10.2 H Absolute Lymphs (auto) 0.60 L Nucleated RBC % 0 Differential Comment SEE COMMENT Platelet Estimate ADEQUATE RBC Morphology N CHROM Anisocytosis 1+ Macrocytosis RARE D-Dimer Quant (PE/DVT) 0.59 H* Sodium 136 Potassium 3.7 Chloride 102 Carbon Dioxide 27.0 Anion Gap 7 BUN 7 Creatinine 0.81 Estim Creat Clear Calc 75.21 Est GFR (MDRD) Af Amer 102 Est GFR (MDRD) Non-Af 84 BUN/Creatinine Ratio 8.6 L Glucose 115 H Calcium 8.8 Troponin I High Sens < 3.0 L Urine Color Urine Clarity Urine pH Ur Specific [place] Urine Protein Urine Glucose (UA) Urine Ketones Urine Occult Blood Urine Nitrite Urine Bilirubin Urine Urobilinogen Ur Leukocyte Esterase Urine RBC Urine WBC Ur Squamous Epith Cells Urine Bacteria Urine Mucus 09/26/20 15:53 WBC RBC Hgb Hct MCV MCH MCHC RDW Std Deviation RDW Coeff of Maurisio Plt Count MPV Immature Gran % (Auto) Neut % (Auto) Lymph % (Auto) Jewell % (Auto) Eos % (Auto) Baso % (Auto) Absolute Neuts (auto) Absolute Lymphs (auto) Nucleated RBC % Differential Comment Platelet Estimate RBC Morphology Anisocytosis Macrocytosis D-Dimer Quant (PE/DVT) Sodium Potassium Chloride Carbon Dioxide Anion Gap BUN Creatinine Estim Creat Clear Calc Est GFR (MDRD) Af Amer Est GFR (MDRD) Non-Af BUN/Creatinine Ratio Glucose Calcium Troponin I High Sens Urine Color Yellow Urine Clarity Clear Urine pH 8.0 Ur Specific [place] 1.010 Urine Protein Negative Urine Glucose (UA) Normal Urine Ketones Negative Urine Occult Blood Negative Urine Nitrite Negative Urine Bilirubin Negative Urine Urobilinogen Normal Ur Leukocyte Esterase Negative Urine RBC 0 SEEN Urine WBC 0 SEEN Ur Squamous Epith Cells 0-5 SEEN Urine Bacteria 0 SEEN Urine Mucus 0 SEEN Radiography Diagnostic Testing: Radiology Impression Chest X-Ray 09/26/20 16:05 IMPRESSION: No acute radiographic abnormalities. Electronically Signed: Taran Bustillo MD at 16:27 EDT Tel , Service support , Chest CTA 09/26/20 16:41 IMPRESSION: 1. No demonstrated pulmonary embolism or arterial dissection. Electronically Signed: Zheng Pitts MD at 17:40 EDT , Service support , 1 view chest x-ray obtained interpreted by myself as no acute disease process. EKG Initial EKG: Attestation: I personally reviewed and interpreted this EKG as follows: Comments: Sinus tachycardia with a ventricular rate of 107 bpm with no acute ST segment changes noted. No delta waves noted. Discharge Plan Triage Chief Complaint: Shortness of Breath ED Provider: Raul Echavarria Dx/Rx/DC Orders Clinical Impression: Heart palpitations, Fatigue Instructions: ED About Arrhythmias, ED Palpitations Primary Care Provider: Care Physician,No Primary Referrals: Radu Thomas MD [STAFF PHYSICIAN] - 3-5 Days Care Physician,No Primary [Primary Care Provider] - Disposition Disposition: Home, Self Care
[2020-09-26 18:25] VITALS: BP 106/70; PULSE 108; RESP 14; O2SAT 99
[2020-09-26 18:54] LABS: Thyroid Stim Hormone (TSH) 0.41 uIU/mL (0.358-3.74)
== END 2020-09-26 18:54 | disposition home or self-care (01) ==
PROVIDERS: Emergency Provider Emergency Medicine
DX: R06.02 Shortness of breath (principal); R00.2 Palpitations; R53.83 Other fatigue
CPT/HCPCS: 71045; 71275; 80048; 81001; 84443; 84484; 85025; 85379; 93005; 96360; 96361; 99285; J7030; Q9967; A4216

== ENCOUNTER → 2020-09-26 | Outpatient (CLI) | payer OTHER, SELFPAY ==
[2020-09-26 14:06] VITALS: BMI 31.1
== END | disposition home or self-care (01) ==
LOC: CVS 18:36
PROVIDERS: Visit Provider Internal Medicine Cardiovascular Disease
DX: R00.0 Tachycardia, unspecified (principal); R55 Syncope and collapse
CPT/HCPCS: 93225; 93226

== ENCOUNTER → 2022-06-27 | Outpatient (CLI) | payer SELFPAY, OTHER ==
--- NOTE | 2022-06-27 07:00 | MRI_ITS ---
STUDY: MRI LUMBAR SPINE WITHOUT CONTRAST REASON FOR EXAM: Female, 37 years old. LBP, numbness in toes TECHNIQUE: Standardized fat and water weighted pulse sequences were obtained in the sagittal and axial planes. COMPARISON: Lumbar spine x-rays June 27, 2022 FINDINGS: T12-L1: Normal endplates. Normal disc height, hydration and morphology. Normal bilateral facet joints. Normal central canal and bilateral lateral recesses. Normal bilateral intervertebral neural foramina. Normal lumbar lordosis. There is no substantial scoliosis. Normal conus medullaris that terminates at T12-L1 L1-2: Normal endplates. Normal disc height, hydration and morphology. Normal bilateral facet joints. Normal central canal and bilateral lateral recesses. Normal bilateral intervertebral neural foramina. L2-3: Normal endplates. Normal disc height, hydration and morphology. Normal bilateral facet joints. Normal central canal and bilateral lateral recesses. Normal bilateral intervertebral neural foramina. L3-4: Normal endplates. Normal disc height, desiccation and minor annular bulge with tiny right foraminal disc protrusion... Normal bilateral facet joints. Normal central canal and bilateral lateral recesses. Mild right neural foraminal encroachment. L4-5: Normal endplates. Normal disc height, desiccation and mild annular bulge.. Mild facet arthropathy.. Normal central canal and bilateral lateral recesses. Moderate bilateral neural foraminal encroachment L5-S1: Normal endplates. Normal disc height, hydration and tiny central disc protrusion.. Normal bilateral facet joints. Normal central canal and bilateral lateral recesses. Normal bilateral intervertebral neural foramina. Normal visualized sacral ala. Normal visualized paraspinous soft tissue structures. No change since prior study given inherent differences in imaging modalities MRI/Spine Lumbar (Routine) IMPRESSION: No acute fracture or other significant bony pathology.. Mild right neural foraminal encroachment at L3-4 secondary to small right foraminal foraminal disc protrusion Moderate bilateral neural foraminal stenosis at L4-5 secondary to bulging annulus and facet arthropathy. Tiny central disc protrusion at L5-S1 without spinal stenosis Electronically Signed: Turner Grande MD at 22:53 EDT ,
--- NOTE | 2022-06-27 08:15 | RAD_ITS ---
EXAM: XR LUMBOSACRAL SPINE, 4 OR 5 VIEWS CLINICAL INDICATION: Low back pain. TECHNIQUE: Frontal, lateral and bilateral oblique views of the lumbar spine. This report was created using [employer] report Room technology. COMPARISON: None. FINDINGS: VERTEBRAE: Unremarkable. Preserved vertebral body height. No fracture. No spondylolisthesis. Preservation of the normal lumbar lordosis. No significant facet arthropathy. DISC SPACES: No acute findings. Disc spaces are maintained. GASTROINTESTINAL TRACT: Unremarkable as visualized. Included bowel gas pattern is non-obstructive. RAD/L/S Spine Min 4 Views IMPRESSION: No evidence of lumbar spinal fracture or spondylolisthesis. Electronically Signed: Dedrick Colindres MD at 5:06 EDT ,
== END | disposition home or self-care (01) ==
PROVIDERS: PCP Nurse Practitioner Family; Referring Provider Nurse Practitioner Family; Visit Provider Nurse Practitioner Family
DX: M54.50 Low back pain, unspecified (principal); G90.09 Other idiopathic peripheral autonomic neuropathy
CPT/HCPCS: 72110; 72148

== ENCOUNTER → 2022-09-30 | Outpatient (REF) | payer SELFPAY | END | disposition home or self-care (01) | LOC: LABSPEC 09:29 | PROVIDERS: PCP Nurse Practitioner Family; Visit Provider Nurse Practitioner Family | DX: A44.9 Bartonellosis, unspecified (principal); A69.20 Lyme disease, unspecified; B60.09 Other babesiosis; E28.39 Other primary ovarian failure ==